=== PATIENT | female | born 1980 | race Caucasian/White ===

== ENCOUNTER → 2017-10-11 14:42 | Outpatient (CLI) | payer OTHER, SELFPAY ==
[2017-10-11 16:24] LABS: Color, Urine Yellow (Yellow); Glucose, Dipstick Normal (Normal); Ketone-Dipstick Negative (Negative); Leukocyte Esterase-Dipstick 100 /ul (Negative); Nitrite-Dipstick Negative (Negative); Occult Blood-Urine 25 /ul (Negative); Protein-Dipstick Negative (Negative); Urine Bilirubin Dipstick Negative (Negative); Urine Clarity Clear (Clear); Urine Urobilinogen Normal (Normal)
[2017-10-11 16:40] LABS: Protein, Urine (Random) 7.3 mg/dL (<11.9); Protein:Creat Ratio 66 mg/g CRE (0-200)
[2017-10-11 17:17] LABS: Erythrocyte Sedimentation Rate 5 mm/hr (0-20)
[2017-10-11 17:21] LABS: Absolute Lymphocyte Count 2.09 X10^3/ul (0.83-4.51); Basophil# 0.03 X10^3/uL; Basophil% 0.4 % (0-1); Eosinophil# 0.19 X10^3/uL; Eosinophils% 2.4 % (0-5); Hematocrit 35.3 % (37-47); Hemoglobin 11.2 g/dl (12.0-15.0); Lymphocyte # 2.09 X10^3/ul (4.0); Lymphocyte % 26.6 % (19-41); Mean Corp Hgb Conc 31.7 g/gl (32-36); Mean Corpuscular Hgb 26.2 pg (27.0-32.0); Mean Corpuscular Volume 82.5 fL (81-99); Mean Platelet Vol. 10.7 fl (6.2-12.0); Monocyte# 0.53 X10^3/uL; Monocyte% 6.7 % (0-10); Neutrophil # 5.02 X10^3/uL (2.7-7.7); Neutrophil % 63.8 % (47-70); Platelet Count 341 K/mm3 (150-450); RBC Distribution Width SD 42.4 fl (35.1-43.9); Red Blood Count 4.28 M/mm3 (4.2-5.4); White Blood Count 7.9 K/mm3 (4.4-11.0)
[2017-10-11 18:02] LABS: AST(SGOT) 17 U/L (15-37); Alanine Aminotransfer ALT/SGPT 24 U/L (13-56); Albumin, Serum 3.7 g/dL (3.2-5.0); Alkaline Phosphatase 84 U/L (45-117); Anion Gap 9 (5-15); BUN 10 mg/dL (7-18); CRP 4.94 mg/L (0.0-3.0); Calcium,Total 8.4 mg/dL (8.5-10.1); Chloride 104 mmol/L (98-107); Creatinine, Serum 0.62 mg/dL (0.55-1.02); EST Glomerular Filtration Rate 113 mL/min (>60); Est Glom Filt Rate - Afr Amer 137 mL/min (>60); Globulin 3.7 g/dL (2.2-4.2); Glucose 84 mg/dL (74-106); Potassium 3.7 mmol/L (3.5-5.1); Protein, Total 7.4 g/dL (6.4-8.2); Rheumatoid Factor < 10.0 IU/mL (<15); Sodium Level 140 mmol/L (136-145)
[2017-10-11 18:12] LABS: POSITIVE COUNT NO; POSITIVE DIFFERENTIAL NO; POSITIVE MORPHOLOGY NO
[2017-10-13 16:53] LABS: Anti-Centromere B Ab >8.0 AI (0.0-0.9); Anti-Jo <0.2 AI (0.0-0.9); Anti-Scleroderma-70 AB <0.2 AI (0.0-0.9); RNP Ab <0.2 AI (0.0-0.9); SJOGREN'S Anti-SS-A test < 0.2 AI (0.0-0.9); SJOGREN'S Anti-SS-B test < 0.2 AI (0.0-0.9); Smith Ab <0.2 AI (0.0-0.9)
[2017-10-14 16:05] LABS: ANTINUCLEAR ANTIBODIES DIRECT Positive (Negative); Anti-dsDNA Ab 3 IU/mL (0-9)
[2017-10-14 16:51] LABS: CCP IgG Antibodies 5 units (0-19); HEPATITIS B SURFACE AG Negative (Negative); Hep B Surface Antibodies Non Reactive (.); Hep C Antibodies <0.1 s/co ratio (0.0-0.9)
== END ==
PROVIDERS: Family Provider Family Medicine; PCP Family Medicine; Visit Provider Internal Medicine Rheumatology
DX: M06.4 Inflammatory polyarthropathy (principal); G24.9 Dystonia, unspecified; R76.8 Other specified abnormal immunological findings in serum; I34.1 Nonrheumatic mitral (valve) prolapse
CPT/HCPCS: 36415; 80053; 81002; 82570; 84156; 85025; 85652; 86038; 86140; 86200; 86225; 86235; 86431; 86706; 86803; 87340

== ENCOUNTER → 2018-05-23 14:25 | Outpatient (CLI) | payer OTHER, SELFPAY ==
[2018-05-27 10:21] LABS: HPV Reflexed? NOT INDICATED
== END ==
PROVIDERS: Visit Provider Obstetrics & Gynecology
DX: Z12.4 Encounter for screening for malignant neoplasm of cervix (principal)
CPT/HCPCS: 88175; G0145

== ENCOUNTER → 2018-10-15 08:59 | Outpatient (CLI) | payer OTHER, SELFPAY ==
[2018-10-15 10:51] LABS: Free T3 2.8 pg/mL (2.18-3.98); T4 Free Direct 0.96 ng/dL (0.76-1.46); Thyroid Stim Hormone (TSH) 1.37 uIU/mL (0.358-3.74)
[2018-10-15 11:02] LABS: Hemoglobin A1c 5.5 % (4.2-6.3)
[2018-10-17 10:37] LABS: Progesterone Level 5.18 ng/mL (See Comment)
[2018-10-17 12:20] LABS: DHEA Sulfate 384.7 ug/dL (57.3-279.2)
== END ==
PROVIDERS: Family Provider Family Medicine; PCP Family Medicine; Referring Provider Obstetrics & Gynecology; Visit Provider Obstetrics & Gynecology
DX: N94.5 Secondary dysmenorrhea (principal); N92.5 Other specified irregular menstruation
CPT/HCPCS: 36415; 82533; 82627; 82670; 83036; 84144; 84403; 84439; 84443; 84481; 82626

== ENCOUNTER 2018-10-27 09:24 | Emergency (ER) | payer OTHER, SELFPAY ==
[2018-10-27 09:30] VITALS: BP 163/94; PULSE 68; RESP 14; TEMP 36.2; O2SAT 97; BMI 27.6
[2018-10-27] MEDS: 0.9% Normal Saline 1,000 ML 1000 ML IV (10:53)
[2018-10-27 11:08] LABS: Absolute Lymphocyte Count 1.68 X10^3/ul (0.83-4.51); Absolute Neutrophil Count 5.1 X10^3/uL (2.0-7.7); Basophil# 0.02 X10^3/uL; Basophil% 0.3 % (0-1); Eosinophil# 0.03 X10^3/uL; Eosinophils% 0.4 % (0-5); Hematocrit 38.2 % (37-47); Hemoglobin 12.6 g/dl (12.0-15.0); Lymphocyte # 1.68 X10^3/ul (4.0); Lymphocyte % 22.6 % (19-41); Mean Corpuscular Hgb 27.9 pg (27.0-32.0); Mean Corpuscular Volume 84.7 fL (81-99); Mean Platelet Vol. 10.3 fl (6.2-12.0); Monocyte# 0.58 X10^3/uL; Monocyte% 7.8 % (0-10); Neutrophil % 68.8 % (47-70); POSITIVE COUNT NO; POSITIVE DIFFERENTIAL NO; POSITIVE MORPHOLOGY NO; Platelet Count 297 K/mm3 (150-450); RBC Distribution Width CV 14.1 % (11.6-14.6); RBC Distribution Width SD 43.9 fl (35.1-43.9); Red Blood Count 4.51 M/mm3 (4.2-5.4); White Blood Count 7.4 K/mm3 (4.4-11.0)
[2018-10-27 11:29] LABS: Anion Gap 10 (5-15); BUN 8 mg/dL (7-18); BUN/Creat Ratio 13.8 RATIO (10-20); Calcium,Total 8.8 mg/dL (8.5-10.1); Chloride 106 mmol/L (98-107); Creatinine, Serum 0.58 mg/dL (0.55-1.02); EST Glomerular Filtration Rate 122 mL/min (>60); Est Glom Filt Rate - Afr Amer 148 mL/min (>60); Estimated Creatinine Clearance 111.34 ml/min; Glucose 104 mg/dL (74-106); Potassium 3.7 mmol/L (3.5-5.1); Sodium Level 142 mmol/L (136-145); Thyroid Stim Hormone (TSH) 1.38 uIU/mL (0.358-3.74)
[2018-10-27 11:36] LABS: Pregnancy, Serum, hCG Quali. NEGATIVE Negative (0-9 Nonpreg)
--- NOTE | 2018-10-27 12:22 | ED.DCSUM_ITS ---
- ER Visit Summary Date of Service: 10/27/18 Chief Complaint: Depression History of Present Illness: The patient is a 38 F who sees Taylor Bañuelos. She reports that she had been on Zoloft for approximately 12 years. Saw primary care physician 6 weeks ago and felt that Zoloft was not working well for her. She was changed from Zoloft to Paxil. There is no taper of the Zoloft. She took the Paxil for 4 days and felt miserable. She was shaky and chattering. She was having nausea and vomiting. The primary care physician stopped the Paxil and placed her on Effexor. She states that she spiraled into depression. She was crying. On September 26 the Effexor was stopped. She was placed on Xanax which she took between September 26 and . States that she was changed to Klonopin on the and she has weaned herself off and has not had any benzodiazepines for the past week. States that she was started on Lexapro 4 days ago. She took 5 mg a day for 2 days. She is now taking 10 mg for the past 3 days. Patient reports she still does not feel well. She has has a poor appetite and has not been sleeping well. However, she denies any suicidal ideation. On review of systems she does complain of a 15 pound weight loss over the same timeframe. She reports she short of breath when she is anxious only. She is been nauseated and having dry heaves. She also complains of generalized weakness. Physical Examination: Vitals: Stable. Afebrile. General: Well-nourished and well-developed. Head: Normocephalic atraumatic. Neck: Supple, no lymphadenopathy. No JVD. Nontender. Cardiovascular: Regular rate and rhythm. No murmurs. Respiratory: No respiratory distress. Clear to auscultation bilaterally. Abdominal: Soft, nontender, nondistended, normal bowel sounds. No guarding, rebound, or peritoneal signs. Back: Nontender. Extremities: Nontender, no edema. Skin: Normal color, no rash. Neurologic: Alert and oriented ?3. Cranial nerves II through XII are intact. Normal strength and sensation. Mental status exam: Patient appears their stated age. Good posture and groo mariangel. Good eye contact. Normal rate, volume, and latency of speech. No suicidal or homicidal ideation. No auditory or visual hallucinations. Flow of thought is logical. Insight and judgment is good. Test Results: CBC is normal. Chem-7 is normal. test is negative. TSH is normal. Emergency Department Course and Treatment: I had a prolonged discussion with patient about alternative methods for treating depression including coping strategies. At this time I do not think taking her off of her Lexapro or changing this is in her best interest. She has had a number of changes in her psychiatric medications in the past month. Treatment Plan: Patient will be discharged with instructions to follow-up the counseling center as previously scheduled. Continue her Lexapro. Return to the emergency department for any worsening symptoms. Disposition: To home in improved and stable condition. Impression: 1. Depression. This note was generated with [employer] dictation software. It may contain incorrect words, spelling, and punctuation that were not noted in review of the chart prior to signing ED Disposition - Plan for ED Patient: Disposition: Home or Assisted Living Instructions: ED Depression Prescriptions: Zolpidem Tartrate [Ambien (Generic)] 5 mg PO QHS PRN PRN #5 tablet PRN Reason: Insomnia Referrals: Counseling,Center [GROUP OF PHYSICIANS] - Keep Horacio appointment
[2018-10-27 12:35] VITALS: BP 135/88; PULSE 62; RESP 17; O2SAT 99
--- NOTE | 2018-10-27 12:35 | ED.RN ---
IV DC'ED, CATHETER INTACT, SMALL GAUZE DRESSING PLACED. DISCHARGE INSTRUCTIONS GIVEN TO AND REVIEWED WITH PATIENT, PATIENT DENIES QUESTIONS OR CONCERNS AND VOICES UNDERSTANDING OF DISCHARGE INSTRUCTIONS. PT AMBULATES OUT OF ROOM WITHOUT DIFFICULTY.
== END 2018-10-27 12:37 | disposition home or self-care (01) ==
LOC: ED 10:22
PROVIDERS: Emergency Provider Emergency Medicine; Family Provider Family Medicine; PCP Family Medicine
DX: F32.9 Major depressive disorder, single episode, unspecified (principal); R11.2 Nausea with vomiting, unspecified; R06.00 Dyspnea, unspecified; R63.4 Abnormal weight loss; G47.33 Obstructive sleep apnea (adult) (pediatric); K21.9 Gastro-esophageal reflux disease without esophagitis; Z79.899 Other long term (current) drug therapy
CPT/HCPCS: 80048; 84443; 84703; 85025; 96360; 96361; 99283; J7030; A4216

== ENCOUNTER → 2019-01-19 14:45 | Outpatient (CLI) | payer OTHER, SELFPAY ==
[2019-01-19 17:18] LABS: Hemoglobin 12.2 g/dl (12.0-15.0); Mean Corpuscular Hgb 27.2 pg (27.0-32.0); Mean Corpuscular Volume 82.6 fL (81-99); Mean Platelet Vol. 11.4 fl (6.2-12.0); Platelet Count 270 K/mm3 (150-450); RBC Distribution Width CV 14.9 % (11.6-14.6); RBC Distribution Width SD 44.5 fl (35.1-43.9); Red Blood Count 4.48 M/mm3 (4.2-5.4); White Blood Count 7.6 K/mm3 (4.4-11.0)
[2019-01-19 17:19] LABS: Scan Indicated on CBC? Y/N NO
[2019-01-19 17:30] LABS: Hemoglobin A1c 5.6 % (4.2-6.3)
[2019-01-19 17:32] LABS: Estradiol 30.8 pg/mL; Free T3 2.7 pg/mL (2.18-3.98); Progesterone Level 0.57 ng/mL (See Comment); T4 Free Direct 0.86 ng/dL (0.76-1.46)
== END ==
PROVIDERS: Family Provider Family Medicine; PCP Family Medicine; Visit Provider Obstetrics & Gynecology
DX: D21.9 Benign neoplasm of connective and other soft tissue, unspecified (principal)
CPT/HCPCS: 36415; 82670; 83036; 84144; 84403; 84439; 84443; 84481; 85027

== ENCOUNTER 2019-01-26 08:36 | Day surgery (SDC) | payer OTHER, SELFPAY ==
--- NOTE | 2019-01-25 15:53 | PCM.HP.BLA ---
History and Physical Date of Admission: 01/26/19 Farideh Daley 1980 ? ? REFERRING PHYSICIAN: Josselin Payne ([facility]), * ? CHIEF COMPLAINT: appendix ? HPI: The patient is a 38 year old female presents with abnormal appendix seen on CT scan. She denies any abdominal pain. CT scan obtained at [facility] on 12/26/18 for right flank pain. 7 cm uterine mass with 1-2 cm exophytic lesion on th elft. Appendix is diffusely dilated up to 16 mm with mild adjacent inflammatory change and some proximal wall thickening. Benign right adrenal myelolipoma. She also had MRI scan of brain for complaint of nausea and dizziness for several weeks. US 12/29/18 - right hydronephrosis noted CT scan reading from [facility] of above scans. GI Tract: No bowel dilation. Chronic appendiceal dilation up to 1.5 cm in diameter (series 2 image 60). The appendix measured 1 cm in diameter on contrast-enhanced CT from 03/04/2017, when there was soft tissue thickening in the mid portion of the appendiceal lumen. 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 Subtle stranding around the pancreas is unchanged. Colonic diverticulosis. No lymphadenopathy noted. 10 cm fibroid, 2.3 cm adenexal cyst, 3.3 cm round soft tissue lesion in right adnexa ? ? PAST MEDICAL HISTORY ? Deviated septum ? ? GERD (gastroesophageal reflux disease) ? ? History of seizure disorder ? ? Resolved ? Lung nodule < 6cm on CT 05/16/2018 ? MVP (mitral valve prolapse) ? ? SHUN (obstructive sleep apnea) ? ? SOB (shortness of breath) 05/16/2018 ? PAST SURGICAL HISTORY ? BREAST REDUCTION ? ? ? DELIVERY ONLY ? ? ? ECISION OF LINGUAL TONSIL ? ? ? OVARY SURGERY HX ? ? ? PAST SURGICAL HISTORY OF ? 2009 ? removal of kidney stone ? ? Current Outpatient Medications: sertraline (ZOLOFT) 50 mg tablet Take 50 mg by mouth once daily. verapamil (CALAN) 120 mg tablet Take 60 mg by mouth once daily. Magnesium 200 mg tab Take by mouth. ? ? ALLERGIES: Amoxicillin; Ciprofloxacin; Morphine; Paxil [Paroxetine Hcl]; Propranolol; Sulfa (Sulfonamide Antibiotics); Venlafaxine ? PERSONAL HISTORY: Social History Socioeconomic History Marital status: Spouse name: Not on file Number of children: Not on file Years of education: Not on file Highest education level: Not on file Social Needs Financial resource strain: Not on file Food insecurity - worry: Not on file Food insecurity - inability: Not on file Transportation needs - medical: Not on file Transportation needs - non-medical: Not on file Occupational History Comment: [employer] Tobacco Use Smoking status: Never Smoker Smokeless tobacco: Never Used Tobacco comment: Both parents smoked in childhood home until patient in teens. No smoking in current home. Substance and Sexual Activity Alcohol use: No Drug use: No Sexual activity: Not on file Other Topics Concerns: Not on file Social History Narrative Not on file ? FAMILY HISTORY ? Asthma Mother ? ? Uterine Cancer Mother ? ? Hypertension Mother ? ? Stroke Mother ? ? other (Hypothyroid) Mother ? ? Allergies Father ? ? Cancer Father ? ? Lung cancer, resected 2 years; Keytruda. No recurrence. ? Hypertension Father ? ? Diabetes Father ? ? Asthma Son ? ? Developed age 12. ? Hypertension Brother ? ? other (Hyperthyroid) Brother ? ? Blood Disease Maternal Grandmother ? ? Heart disease Maternal Grandmother ? ? Psychiatry Maternal Grandmother ? ? Diabetes Paternal Grandfather ? ? ? REVIEW OF SYSTEMS: General: The patient notes fatigue, denies weight loss, denies weight gain, denies feeling hot, and denies feelings of cold. Eyes: The patient denies glaucoma, denies eye injury/surgery, does not wear glasses or contacts. Ear/Nose/Throat: The patient denies allergies, denies hayfever, notes ear infections, and denies bloody noses. Cardiovascular: The patient notes chest pain, denies heart disease, denies high blood pressure,denies cardiac stent, denies prior heart attack, denies irregular heart beat, denies high cholesterol, denies poor circulation, denies heart failure, other cardiac issues, denies claudication, denies cold feet, denies peripheral arterial stent. Respiratory: The patient denies tuberculosis, denies pneumonia, denies frequent cough, denies pulmonary embolism, notes shortness of breath, and denies coughing up blood. Gastrointestinal: The patient denies difficulty swallowing, notes acid reflux, denies ulcers, denies vomiting, denies jaundice/hepatitis, denies gallbladder problems, denies black or tarry stools, denies hemorrhoids, denies bleeding from rectum, denies diverticulitis, denies constipation, denies diarrhea, denies loss of stool control, and notes hernias. Kidney/Bladder: The patient notes kidney stones, denies urine infections, and denies bloody urine. Skin: The patient denies a history of skin cancer, denies bleeding/changing moles, and denies a history of skin rash. Neurologic: The patient NOTES a history of epilepsy/convulsions, notes headaches, denies head/spinal injuries, and denies stroke/TIA. Psychiatric: The patient notes psychiatric medications, denies depression, and denies voices, denies substance abuse. Endocrine: The patient denies thyroid disorders, denies diabetes, and notes hormonal problems. Hematologic: The patient denies a history of bruising, denies bleeding, and notes anemia, denies blood clots. Infections: The patient denies a history of measles and mumps, denies rheumatic fever, and denies sexually transmitted diseases. Musculoskeletal: The patient denies back pain/injury, denies back problems, denies sciatica, denies knee/foot trouble, notes arthritis, or denies gout. ? PHYSICAL EXAMINATION: General: The patient is 38 year old female, well nourished, well hydrated in no acute distress. The patient is oriented to time, place, and person. VITALS: Blood pressure 124/72, pulse 60, weight 72.1 kg (159 lb). Head ? Normocephalic. EOM intact with sclera clear and no icterus noted. Mouth with mucus membranes moist. Neck - supple with no jugular venous distention noted. Trachea is midline. No masses noted. Lungs ? clear to auscultation. Normal breath sounds. No rales/rhonchi/wheezing noted. No labored breathing noted, such as retractions. Heart ? normal S1 and S2 auscultated. No rubs/clicks/murmurs noted. Regular rate. Abdomen ? soft and benign. Normal bowel sounds. No abdominal bruits noted. No distention oted. No masses noted. Extremities ? no calf tenderness noted. No pitting edema noted. Skin ? normal skin integrity. Lymph ? no cervical adenopathy detected, no supraclavicular adenopathy detected, no axillary adenopathy detected Neurological ? gait normal, no focal deficits noted. Psych ? calm and appropriate RADIOLOGIC STUDIES: As Noted ? ? IMPRESSION: abnormal appendix on CT scan ? PLAN: I have discussed the above with the patient. I have offered laparoscopic appendectomy, with frozen section. I have explained the procedure to the patient. I have counseled the patient as to the risks of the procedure, including but not limited to: infection, bleeding, injury to any blood vessels/nerves, scar tissue, injury to any intraabdominal organs, injury to bowel/bladder, intraabdominal abscess/bleeding, hernias at incisional sites, wound infections, complications of anesthesia, etc. ? the patient understands. The patient wishes to proceed. I have answered all questions to the patient?s satisfaction and the patient has no further questions. Return to Clinic: The patient is instructed to follow-up with me ? Marlyn Wilder MD
--- NOTE | 2019-01-25 16:04 | EKG12_ITS ---
Test Reason : PRE OP Blood Pressure : / mmHG Vent. Rate : 069 BPM Atrial Rate : 069 BPM P-R Int : 136 ms QRS Dur : 094 ms QT Int : 412 ms P-R-T Axes : 065 006 051 degrees QTc Int : 441 ms Normal sinus rhythm Low voltage QRS (limb leads) Poor R wave progression Inferior FL, age undetermined, cannot be excluded Confirmed by DERRICK ARCHIBALD, MARYAM ([id number]), primer expeditor and drier ARAM CASIANO ([id number]) on 01/27/2019 6:44:46 AM Referred By: Marlyn Wilder Confirmed By:MARYAM MEZA MD
[2019-01-25 17:52] LABS: Hematocrit 36.8 % (37-47); Hemoglobin 12.1 g/dl (12.0-15.0); Mean Corp Hgb Conc 32.9 g/gl (32-36); Mean Corpuscular Hgb 27.1 pg (27.0-32.0); Mean Corpuscular Volume 82.3 fL (81-99); Mean Platelet Vol. 11.1 fl (6.2-12.0); Platelet Count 266 K/mm3 (150-450); RBC Distribution Width CV 14.9 % (11.6-14.6); RBC Distribution Width SD 44.2 fl (35.1-43.9); Red Blood Count 4.47 M/mm3 (4.2-5.4); White Blood Count 8.7 K/mm3 (4.4-11.0)
[2019-01-25 17:58] LABS: Scan Indicated on CBC? Y/N NO
[2019-01-26] VITALS (7 sets, daily range): BP systolic 110–142; BP diastolic 62–88; PULSE 70–85; RESP 16–18; TEMP 36.2–37.7; O2SAT 95–100; BMI 27.3
[2019-01-26 08:55] LABS: Internal QC Validated? YES +Cl - CLEAR BKGD; Pregnancy, Urine Negative Negative
--- NOTE | 2019-01-26 10:53 | PCM.DC.APPY ---
Discharge Diet: No Restrictions - drink plenty of fluids avoid carbonated beverages for a couple of days as this may cause bloat and increase discomfort after surgery Discharge Activity: Return to Normal Activity, May not drive while taking narcotic pain medications. Lifting Restrictions: no lifting greater than 20 pounds for two weeks Call your doctor if your incision/area has: Continuous Slow Oozing, Foul Smelling Discharge Call your doctor if you observe: Fever of 101 or Higher Additional Dressing/Incision Instructions:: Leave dressings in place. May get wet in shower. Do not soak - no tub baths/swimming Medications to take at Discharge Verapamil HCl [Verapamil ER] 60 mg PO DAILY 10/27/18 Famotidine/Ca Carb/Mag Hydrox [Pepcid Complete Tablet Chew] 1 each PO PRN PRN 01/24/19 Sertraline HCl [Zoloft] 50 mg PO DAILY 01/24/19 Hydrocodone Bitart/Apap 5-325 [Vicodin 5/325] 1 tab PO Q12H PRN PRN 3 Days #5 tab 01/26/19 Allergies/Adverse Reactions: Allergies propranolol [From Inderal LA] Allergy (Verified 01/24/19 13:44) Shortness of breath Sulfa (Sulfonamide Antibiotics) Allergy (Verified 01/24/19 13:44) Unknown amoxicillin Adverse Reaction (Verified 01/24/19 13:44) Rash codeine Adverse Reaction (Verified 01/24/19 13:44) Other Penicillins [PCN] Adverse Reaction (Verified 01/24/19 13:44) Rash MORPHINE Adverse Reaction (Uncoded 10/27/18 09:29) Itching The following prescriptions were given: Hydrocodone Bitart/Apap 5-325 [Vicodin 5/325] 1 tab PO Q12H PRN PRN 3 Days #5 tab PRN Reason: Pain Orders to be completed after discharge: 12 Lead EKG [[facility]] Time Frame: 01/25/19, Facility: [facility], Location: Cardiovascular Services Primary Care Physician: Josselin Payne NP-C [Primary Care Provider] - Test Results: Test results from this visit will be discussed in further detail at your follow-up appointment, if applicable. Please Follow Up With: Marlyn Wilder MD - call When: to be seen in 7-10 days, please call for date and time, thank you
--- NOTE | 2019-01-26 11:05 | APP_PTH ---
PATIENT: JAVIER DOSS LOC: [facility] U#:[id number] AGE/SX: 38/F ROOM: RE01/26/[address]: Dr. Marlyn Wilder MD : 1980 BED: DIS: 01/26/2019 SPEC #: [id number] RECD: 01/26/19 15:16 STATUS: CHERIE МАРИНА #: [id number] MARIJA: 01/26/19 11:[address]: Marlyn Wilder DEPT: SURGICAL PATHOLOGY RECD BY: Yobany Krueger ENTERED: 01/27/19 08:50 SP TYPE: APPENDIX OTHR DR: Josselin Payne, DOCUMENT MANAGEMENT SPECIALIST-C Tissues: Appendix, NOS Procedures: Surgery Specimen Level III HEADER OPERATION: Laparoscopic appendectomy PRE-OP DIAGNOSIS: Abnormal appendix on CT scan TISSUE SUBMITTED: Appendix MICROSCOPIC DIAGNOSIS Appendix, appendectomy: Hyperplastic epithelium. Two benign periappendiceal lymph nodes. AM:júnior 01/30/19 COMMENT Case has been reviewed in consultation with Dr. Garay who concurs with the above diagnosis. IDC:SJ MICROSCOPIC DESCRIPTION Slides are reviewed. GROSS DESCRIPTION Received is one container labeled with the patient's name and designated appendix. The specimen consists of an appendix which is interrupted in the middle measuring 6 cm in length and up to 1.5 cm in diameter. The attached periappendiceal adipose tissue measures up to 1.5 cm in width. No obvious perforation is identified. The lumen is pinpoint. No fecalith is identified. Sections of periappendiceal tissue do not reveal any obviously enlarged lymph node. Gas Meter Installer Helper sections are submitted in four cassette. Cassette 1 contains the tip of appendix and proximal portion. / ELENITA:júnior 01/27/19 TC:5 CPT: 77947
[2019-01-26] MEDS: Bupiv/Epi 0.25% 30 ML Vial (11:44)
--- NOTE | 2019-01-26 11:51 | OP.PCM_ITS ---
Report of Operation Date of Procedure: 01/26/19 Pre-Operative Diagnosis: abnormal appendix by CT scan Post-Operative Diagnosis: same Surgery/Procedure Performed:: laparoscopic appendectomy Description of Surgical Findings:: enlarged uterus, possible endometriosis deposit, blood in pelvis of unknown etiology - no from appendix - suspect gynecological etiology, enlarged appendix - possible adenopathy adjacent Type of Anesthesia:: General Anesthesiologist: Tin Wen Specimen's removed: appendix Drains: none Estimated Blood Loss (mL): < 10 Fluids Replaced: 1200 ml RL Description of Procedure: After informed consent was obtained, the patient was brought into the Operating Room. Appropriate time out protocol was followed. She was then placed in the supine position on the operating table. The patient was then placed under general anesthesia. The patient?s abdomen was then prepped with a sterile surgical skin preparation and sterile surgical drapes were placed. The infraumbilical skin fold was grasped with penetrating clamps and the skin and subcutaneous tissues were infiltrated with 0.25% marcaine with epinephrine. A skin incision was then made. A Veress needle was then inserted into the intraabdominal cavity and checked to be in the proper position with a normal saline drop test. A CO2 pneumoperitoneum was then created. Once this was achieved, the Veress needle was removed and a 5 mm trocar was placed in its stead. A 5 mm laparoscope was then inserted into the trocar. Careful examination of the intraabdominal contents was then done. There was no evidence of injury to any internal organs from placement of the Veress needle or the trocar. Under direct visualization, a 12mm suprapubic trocar and a 5mm left lower quadrant trocar was then placed into the intraabdominal cavity. The skin and subcutaneous tissues at these sites were first infiltrated with 0.25% marcaine with epinephrine. The uterus was enlarged, pictures were taken. Possible endometriosis deposits noted. There was blood noted in the pelvis, but no site of active bleeding could be determined. The uterus was greatly enlarged such that visualization of pelvic structures could not be adequately done. Attention was then directed to the right lower quadrant. The appendix was visualized. It was grossly dilated, but no active bleeding was noted in this area. The mesentery of the appendix was taken down by cauterizing the tissue from the free edge to the base of the appendix with the Harmonic scalpel. There may be a lymph node within this tissue and it was dissected along with the specimen en berhane. Once the base of the appendix was freed of surrounding tis sues, then the linear gastrointestinal stapling device was brought into the abdominal cavity via the 12mm port and placed across the base of the appendix. The stapling device was fired, thus stapling across the base of the appendix and transecting it simultaneously. The appendix was then placed in an Endobag and this was brought out through the suprapubic trocar. The appendix was then forwarded to Pathology for analysis. The appendiceal stump was carefully examined. There was slight oozing along the staple line, this was controlled with placement of Surgicel. There was no evidence of any active bleeding or fecal leakage. The surrounding tissues were also examined and there was no evidence of any active bleeding or fecal/bile leakage. The intraabdominal cavity was examined and there was no evidence of further inflammation or tissue abnormality except as stated above. There was no evidence of any peritoneal fluid. The CO2 pneumoperitoneum was released and all trocars were removed intact. The suprapubic fascia was reapproximated with a figure-of-8 vicryl suture. All skin incisions were reapproximated with monocryl suture. Cavilon and steristrips were applied to reinforce skin closure and proper sterile dressings were placed. The patient was then extubated and brought to the Recovery Room in stable condition. - Complications none noted - Admit VTE Documentation VTE Present on Admission: Yes VTE Mechan Device Prophylaxis: SCD's
[2019-01-26] MEDS: HYDROcodone Bitartrate/Apap 5/325 Tablet PO (14:50)
== END 2019-01-26 15:50 | disposition home or self-care (01) ==
LOC: SDC 08:37 → AC 08:38
PROVIDERS: Anesthesiology; Family Provider Registered Nurse; PCP Registered Nurse; Referring Provider Surgery; Visit Provider Surgery
PROC: 0DTJ4ZZ Resection of Appendix, Percutaneous Endoscopic Approach (ICD-10-PCS; CPT 44970; principal; 2019-01-26 10:45)
DX: R93.5 Abnormal findings on diagnostic imaging of other abdominal regions, including retroperitoneum (principal); N85.2 Hypertrophy of uterus; G47.30 Sleep apnea, unspecified; K21.9 Gastro-esophageal reflux disease without esophagitis; F32.9 Major depressive disorder, single episode, unspecified; F41.9 Anxiety disorder, unspecified; G47.33 Obstructive sleep apnea (adult) (pediatric); Z88.2 Allergy status to sulfonamides; Z88.0 Allergy status to penicillin; Z88.5 Allergy status to narcotic agent; Z88.1 Allergy status to other antibiotic agents; Z79.899 Other long term (current) drug therapy; Z87.442 Personal history of urinary calculi; Z86.69 Personal history of other diseases of the nervous system and sense organs
CPT/HCPCS: 44970; 36415; 81025; 85027; 88304; 93005; J7120; J2405

== ENCOUNTER 2019-01-31 18:19 | Emergency (ER) | payer OTHER, SELFPAY ==
[2019-01-26 09:13] VITALS: BMI 27.3
[2019-01-31 18:21] VITALS: BP 133/86; PULSE 86; RESP 18; TEMP 36.9; O2SAT 99; BMI 26.8
--- NOTE | 2019-01-31 19:48 | CT_ITS ---
STUDY: CT ABDOMEN AND PELVIS WITH CONTRAST REASON FOR EXAM: Female, 38 years old. Status post appendectomy 5 days ago. Post op pain. RADIATION DOSAGE (If Supplied By Facility): CTDIvol = ( 17.33 ) mGy, DLP = ( 966.11 ) mGycm TECHNIQUE: Transaxial images were obtained from the dome of the diaphragm to the symphysis pubis without oral contrast. 100ML ml of Isovue 300 contrast was administered. Sagittal and coronal images were reconstructed. Individualized dose optimization techniques were used for this CT. COMPARISON: None. FINDINGS: The visualized lung bases are clear. The visualized portions of the heart and pericardium are within normal limits. There are no calcified gallstones present. The liver is within normal limits. There are no suspicious hepatic lesions. The spleen is normal in size. The pancreas is within normal limits. There is a 3.2 cm fat containing right adrenal mass which is consistent with a myolipoma. There are no left adrenal nodules. There are no renal or ureteral stones. There is no hydronephrosis. There is a 2.8 cm septated cyst in the upper pole of the right kidney. There is a simple cyst in the left kidney. Normal visualized stomach. There is no bowel obstruction or inflammation. The patient is status post appendectomy. There is mild fat stranding in the right lower quadrant, consistent with the patient's recent postoperative state. The aorta is normal in caliber. The uterus is enlarged and heterogeneous, consistent with fibroids. There is a 3 cm right adnexal cyst. There is no abdominal or pelvic free air, free fluid, fluid collection or lymphadenopathy. There are no destructive osseous lesions. CT/Abdomen/Pelvis WITH Contrast IMPRESSION: Status post appendectomy. Mild fat stranding in the right lower quadrant, consistent with the patient's recent postoperative state. No free air, free fluid or fluid collection. Fat-containing right adrenal mass which is consistent with a myelolipoma. Septated cyst in the right kidney. Enlarged, heterogeneous uterus which is consistent with fibroids. 3 cm right adnexal cyst which is likely physiologic. Electronically Signed: Ashvin Villafana, at 21:56 EDT Tel , Service support ,
--- NOTE | 2019-01-31 19:54 | ED.DCSUM_ITS ---
- ER Visit Summary Date of Service: 01/31/19 Chief Complaint: Abdominal pain History of Present Illness: The patient is a 38 F presenting with right lower quadrant abdominal pain. Patient had an appendectomy last per Dr. Wilder. She states today she began having intermittent right sided lower abdom inal pain. She has nausea with no vomiting. She denies diarrhea or constipation. Denies fever. Denies urinary complaints. She has a follow-up appointment scheduled with Dr. Wilder tomorrow. Physical Examination: Vitals are stable. Patient is afebrile. Alert no acute distress. HEENT exam is unremarkable. Neck is supple. Lungs are clear and equal bilaterally. Heart is regular rate and rhythm. Abdomen is soft nontender nondistended. Dressings clean dry and intact Extremities are unremarkable. Skin is warm and dry. No focal neurologic deficit. Remainder of exam is unremarkable. Emergency Department Course and Treatment: Patient was given Zofran IV. CBC, chemistries unremarkable. Urinalysis unremarkable. hCG negative. CT abdomen pelvis shows status post appendectomy. Mild fat stranding in the right lower quadrant, consistent with the patient's recent postoperative state. No free air, free fluid or fluid collection. Fat-containing right adrenal mass which is consistent with a myelolipoma. Septated cyst in the right kidney. Enlarged, heterogeneous uterus which is consistent with fibroids. 3 cm right adnexal cyst which is likely physiologic. Discussed with Dr. Musa. Patient will follow- up with Dr. Wilder as scheduled. Advised return to ED for worsening complaints. Disposition: Discharge home Impression: Postoperative abdominal pain This note was generated with [employer] dictation software. It may contain incorrect words, spelling, and punctuation that were not noted in review of the chart prior to signing ED Disposition - Plan for ED Patient: Instructions: ED Abdominal Pain Unkn Cause Referrals: Marlyn Wilder MD [STAFF PHYSICIAN] - Josselin Payne NP-C [Primary Care Provider] -
[2019-01-31] MEDS: Ondansetron 4 MG/2 ML Vial IV (20:04)
[2019-01-31 20:22] LABS: Absolute Lymphocyte Count 1.92 X10^3/ul (0.83-4.51); Absolute Neutrophil Count 5.9 X10^3/uL (2.0-7.7); Basophil# 0.02 X10^3/uL; Basophil% 0.2 % (0-1); Eosinophil# 0.14 X10^3/uL; Eosinophils% 1.6 % (0-5); Hematocrit 38.6 % (37-47); Hemoglobin 12.8 g/dl (12.0-15.0); Lymphocyte # 1.92 X10^3/ul (4.0); Lymphocyte % 22.2 % (19-41); Mean Corp Hgb Conc 33.2 g/gl (32-36); Mean Corpuscular Hgb 27.4 pg (27.0-32.0); Mean Corpuscular Volume 82.7 fL (81-99); Monocyte# 0.68 X10^3/uL; Monocyte% 7.9 % (0-10); Neutrophil # 5.85 X10^3/uL (2.7-7.7); Neutrophil % 67.9 % (47-70); Platelet Count 302 K/mm3 (150-450); RBC Distribution Width CV 14.9 % (11.6-14.6); RBC Distribution Width SD 44.8 fl (35.1-43.9); Red Blood Count 4.67 M/mm3 (4.2-5.4); White Blood Count 8.6 K/mm3 (4.4-11.0)
[2019-01-31 20:23] LABS: POSITIVE COUNT NO; POSITIVE DIFFERENTIAL NO; POSITIVE MORPHOLOGY NO
[2019-01-31 20:29] LABS: Internal QC Validated? YES +Cl - CLEAR BKGD; Pregnancy, Serum, hCG Quali. NEGATIVE Negative
[2019-01-31 20:35] LABS: Anion Gap 3 (5-15); BUN 11 mg/dL (7-18); BUN/Creat Ratio 17.8 RATIO (10-20); Calcium,Total 8.8 mg/dL (8.5-10.1); Chloride 106 mmol/L (98-107); Creatinine, Serum 0.62 mg/dL (0.55-1.02); EST Glomerular Filtration Rate 114 mL/min (>60); Est Glom Filt Rate - Afr Amer 138 mL/min (>60); Estimated Creatinine Clearance 104.16 ml/min; Glucose 95 mg/dL (74-106); Potassium 3.7 mmol/L (3.5-5.1); Sodium Level 139 mmol/L (136-145)
[2019-01-31 20:41] LABS: Mucous, Urine 0 SEEN /hpf (<or=2+); Red Blood Cells-Urine 0 SEEN /hpf (0-5)
[2019-01-31 20:53] LABS: Color, Urine Yellow (Yellow); Glucose, Dipstick Normal (Normal); Ketone-Dipstick Negative (Negative); Leukocyte Esterase-Dipstick 25 /ul (Negative); Nitrite-Dipstick Negative (Negative); Occult Blood-Urine Negative /ul (Negative); Protein-Dipstick Negative (Negative); Specific Gravity, Urine 1.015 (1.002-1.030); Urine Bilirubin Dipstick Negative (Negative); Urine Clarity Sl. Cloudy (Clear); Urine Urobilinogen Normal (Normal)
[2019-01-31 21:13] LABS: Bacteria 1+ /hpf (None Seen); Squamous Epithelial Cells - UA 0-5 SEEN /hpf (5-10); White Blood Cells 0-5 SEEN /hpf (0-5)
[2019-01-31 21:14] LABS: Amorphous Sediment 2+
--- NOTE | 2019-01-31 22:44 | EKG12_ITS ---
Test Reason : CP Blood Pressure : / mmHG Vent. Rate : 070 BPM Atrial Rate : 070 BPM P-R Int : 138 ms QRS Dur : 098 ms QT Int : 406 ms P-R-T Axes : 055 -07 041 degrees QTc Int : 438 ms Normal sinus rhythm Normal ECG Confirmed by ANAY MCBRIDE ([id number]), purchase request editor MADDISON DILLARD ([id number]) on 02/02/2019 11:52:06 AM Referred By: Confirmed By:ZAC MCBRIDE
--- NOTE | 2019-01-31 23:02 | ED.DEP ---
ED Disposition - Plan for ED Patient: Instructions: ED Abdominal Pain Unkn Cause Referrals: Josselin Payne NP-Baldev [Primary Care Provider] - Marlyn Wilder MD [STAFF PHYSICIAN] -
[2019-01-31 23:41] VITALS: BP 127/91; PULSE 72; RESP 16; O2SAT 95
== END 2019-01-31 23:46 | disposition home or self-care (01) ==
PROVIDERS: Emergency Provider Emergency Medicine; Family Provider Registered Nurse; PCP Registered Nurse
DX: G89.18 Other acute postprocedural pain (principal); Z90.49 Acquired absence of other specified parts of digestive tract; R11.0 Nausea; E27.9 Disorder of adrenal gland, unspecified; N28.1 Cyst of kidney, acquired; F41.9 Anxiety disorder, unspecified; Z79.899 Other long term (current) drug therapy
CPT/HCPCS: 74177; 80048; 81001; 84703; 85025; 93005; 96374; 99283; Q9967; A4216; J2405

== ENCOUNTER 2019-03-05 12:00 | Emergency (ER) | payer OTHER, SELFPAY ==
[2019-03-05 12:01] VITALS: BP 128/81; PULSE 82; RESP 18; TEMP 36.6; O2SAT 100; BMI 27.4
--- NOTE | 2019-03-05 12:26 | ED.DCSUM_ITS ---
- ER Visit Summary Date of Service: 03/05/19 Chief Complaint: Neck pain History of Present Illness: The patient is a 38 F pathology. On recent 4 weeks ago for elective appendectomy. Prior to having the surgery she had massage therapy of her neck. Since that time about 4 weeks ago she has had chronic midl ine neck pain. Denies any fall or trauma. No fever. No arm weakness or numbness. No burning pain. No loss of strength. No prior neck history of neck surgery. She has seen a chiropractor with [facility]. She gets the pain she often gets nauseated. Physical Examination: Well-appearing middle-aged female. No acute distress. Vital signs are stable afebrile. HEENT exam unremarkable neck nontender no lymphadenopathy. She has full flexion-extension and rotation of her neck. There is no muscle spasm. There is no midline abnormality or tenderness. Lungs clear to auscultation bilaterally. Heart regular rhythm no murmur. Abdomen soft nontender. Extremities moves all 4. Neurovascular intact. Normal molder foam rubber strength. Normal sensation. Normal range of motion. Back nontender. Neurologically she is awake alert with no focal motor or sensory deficit. Test Results: None Emergency Department Course and Treatment: Zofran for nausea. Treatment Plan: Had a long discussion the patient and her significant other. She needs no imaging at this time. There is been no significant trauma. She has no signs of acute disc. There is no signs of significant muscle spasm. She can use Motrin or Aleve for pain and inflammation. Zofran for nausea and follow-up with her primary if her symptoms do not improve. Disposition: Discharge Impression: Acute neck pain muscular skeletal etiology This note was generated with [employer] dictation software. It may contain incorrect words, spelling, and punctuation that were not noted in review of the chart prior to signing ED Disposition - Plan for ED Patient: Referrals: Josselin Payne NP-C [Primary Care Provider] -
--- NOTE | 2019-03-05 12:31 | ED.DEP ---
ED Disposition - Plan for ED Patient: Disposition: Home or Assisted Living Instructions: NECK PAIN, No Trauma Prescriptions: Ondansetron [Zofran Odt] 4 mg PO Q8H PRN PRN #20 tab PRN Reason: Nausea Prescription Printed Referrals: Josselin Payne, [employer] [Primary Care Provider] - 1 Week if not improving Additional Instructions: Motrin, Aleve or Naprosyn for your neck pain and inflammation. Tylenol is fine for pain but does not think for inflammation. Next rib Zofran for your nausea. Follow-up with your doctor or primary care provider if not improving in 1 to 2 weeks.
[2019-03-05] MEDS: Ondansetron ODT 4 MG Tablet 8 MG PO (12:32)
[2019-03-05 13:10] VITALS: RESP 18; O2SAT 98
== END 2019-03-05 13:13 | disposition home or self-care (01) ==
LOC: ED 13:05
PROVIDERS: Emergency Provider Emergency Medicine; Family Provider Registered Nurse; PCP Registered Nurse
DX: M54.2 Cervicalgia (principal); G89.29 Other chronic pain; R11.0 Nausea; K21.9 Gastro-esophageal reflux disease without esophagitis; F32.9 Major depressive disorder, single episode, unspecified; Z79.899 Other long term (current) drug therapy
CPT/HCPCS: 99282

== ENCOUNTER → 2020-07-20 | Outpatient (CLI) | payer OTHER, SELFPAY ==
[2020-07-20 13:52] VITALS: BMI 27.8
== END | disposition home or self-care (01) ==
PROVIDERS: PCP Registered Nurse; Visit Provider Nurse Practitioner Family
DX: U07.1 COVID-19 (principal)
CPT/HCPCS: 87635; U0003

== ENCOUNTER 2021-05-08 21:55 | Observation (INO) | payer OTHER, SELFPAY ==
[2021-05-08 21:56] VITALS: BP 124/89; PULSE 86; RESP 15; TEMP 36.9; O2SAT 98; BMI 29.7
[2021-05-08 22:26] VITALS: RESP 18
[2021-05-08 23:20] LABS: Anion Gap 4 (5-15); BUN 9 mg/dL (7-18); BUN/Creat Ratio 14.2 RATIO (10-20); Calcium,Total 8.8 mg/dL (8.5-10.1); Chloride 104 mmol/L (98-107); Creatinine, Serum 0.63 mg/dL (0.55-1.02); EST Glomerular Filtration Rate 109 mL/min (>60); Est Glom Filt Rate - Afr Amer 132 mL/min (>60); Estimated Creatinine Clearance 100.45 ml/min; Glucose 120 mg/dL (74-106); Potassium 3.7 mmol/L (3.5-5.1); Sodium Level 138 mmol/L (136-145)
[2021-05-08 23:25] LABS: Internal QC Validated? YES +Cl - CLEAR BKGD; Pregnancy, Serum, hCG Quali. NEGATIVE Negative
[2021-05-08 23:26] LABS: Absolute Lymphocyte Count 1.09 X10^3/uL (0.83-4.51); Absolute Neutrophil Count 11.2 X10^3/uL (2.0-7.7); Basophil# 0.03 X10^3/uL; Basophil% 0.2 % (0-1); Eosinophil# 0.06 X10^3/uL; Eosinophils% 0.4 % (0-5); Hematocrit 39.1 % (37-47); Lymphocyte # 1.09 X10^3/ul (0.83-4.51); Lymphocyte % 8.2 % (19-41); Mean Corp Hgb Conc 33.2 g/dL (32-36); Mean Corpuscular Hgb 27.9 pg (27.0-32.0); Mean Corpuscular Volume 83.9 fL (81-99); Mean Platelet Vol. 10.3 fl (6.2-12.0); Monocyte# 0.72 X10^3/uL; Monocyte% 5.4 % (0-10); NRBC Flagged by Analyzer 0 % (0-5); Neutrophil # 11.24 X10^3/uL (2.7-7.7); Neutrophil % 84.1 % (47-70); Platelet Count 301 K/mm3 (150-450); RBC Distribution Width CV 13.2 % (11.6-14.6); RBC Distribution Width SD 40.4 fl (35.1-43.9); Red Blood Count 4.66 M/mm3 (4.2-5.4); White Blood Count 13.4 K/mm3 (4.4-11.0)
--- NOTE | 2021-05-08 23:52 | ED.VIS.GI ---
HPI HPI - GI History of Present Illness Chief Complaint: Abd Pain Narrative Narrative: Patient presenting with abdominal pain. She points to the center of her lower abdomen. She states is been hurting since yesterday. She associates nausea and vomiting with this. She has not had a fever. Patient states she had a surgery recently for adrenal gland removal. She has a history of hysterectomy as well. Patient does not have diarrhea or constipation. He feels pressure in her lower abdomen. She denies urinary complaints. PFSH PFSH Medical History Mitral valve prolapse Home Medications verapamil 60 mg PO DAILY 10/27/18 [History Last Taken 01/30/19] sertraline 50 mg PO DAILY 01/24/19 [History Last Taken 01/30/19] esomeprazole magnesium [Nexium] 40 mg PO DAILY 05/09/21 [History Last Taken Unknown] Allergy/AdvReac Type Severity Reaction Status Date / Time propranolol [From Inderal LA] Allergy Shortness Verified 07/20/20 13:54 of breath Sulfa (Sulfonamide Allergy Unknown Verified 07/20/20 13:54 Antibiotics) amoxicillin AdvReac Rash Verified 07/20/20 13:54 codeine AdvReac Other Verified 07/20/20 13:54 Penicillins [PCN] AdvReac Rash Verified 07/20/20 13:54 MORPHINE AdvReac Itching Uncoded 07/20/20 13:54 Social History Smoking Status: Never smoker ROS ROS ED Constitutional Constitutional ED: Denies chills or fever(s) ENT ENT ED: Denies rhinorrhea or sore throat Cardiovascular Cardiovascular: Denies chest pain or palpitations Respiratory/Chest Respiratory/Chest: Denies cough or dyspnea Gastrointestinal Gastrointestinal: Reports abdominal pain, nausea and vomiting; Denies constipation or diarrhea Genitourinary Genitourinary ED: Denies dysuria or hematuria Musculoskeletal Musculoskeletal: Denies arthralgias or myalgias Neurologic Neurologic: Denies headache(s) or weakness Psychiatric Psychiatric: Denies anxiety or depression EXAM Physical Exam Const Vital Signs: 05/08/21 21:56 05/08/21 22:26 05/09/21 01:38 Temperature 98.4 F Temperature Source Temporal Pulse Rate 86 77 Respiratory Rate 15 18 16 Blood Pressure 124/89 H Blood Pressure Mean 100 Pulse Ox 98 98 Oxygen Delivery Method Room Air Room Air Positive well nourished General Appearance ED: NAD HEENT Reports moist mucous membranes normocephalic and atraumatic Eyes PERRL and EOMs intact bilaterally Resp normal respiratory effort Cardio regular rate and regular rhythm GI GI Narrative: Tenderness to palpation in the midline of the lower abdomen. Neuro Sensorium / Orientation: alert and oriented to person Psych mental status grossly normal and thought process normal Skin Lesions: no lesions Rashes: no rashes MDM MDM MDM Narrative Medical decision making narrative: Patient presenting with abdominal pain. She states she really just want something for nausea. She states she has not had any fever and admits to pressure in the middle to the left side of her lower abdomen. Vital signs are stable and she is afebrile. Patient has a slight leukocytosis of 13.4. Renal function and electrolytes are normal. is negative. CT of the abdomen pelvis shows diverticulitis with 5 x 3.5 cm abscess. Patient counseled on findings. I spoke with Dr. Murphy. Who agreed to admit the patient. Likely this will need interventional radiology. I will start Cipro and Flagyl due to patient's penicillin allergy. Covid testing is pending on admission. Impression: 1. Diverticulitis with abscess Lab Data Attestation: I reviewed the patient's lab results. Labs: Laboratory Results - last 24 hr 05/08/21 05/08/21 05/08/21 22:39 22:39 22:39 WBC 13.4 H RBC 4.66 Hgb 13.0 Hct 39.1 MCV 83.9 MCH 27.9 MCHC 33.2 RDW Std Deviation 40.4 RDW Coeff of Carline 13.2 Plt Count 301 MPV 10.3 Immature Gran % (Auto) 1.700 H Neut % (Auto) 84.1 H Lymph % (Auto) 8.2 L [place] % (Auto) 5.4 Eos % (Auto) 0.4 Baso % (Auto) 0.2 Absolute Neuts (auto) 11.2 H Absolute Lymphs (auto) 1.09 Nucleated RBC % 0 Sodium 138 Potassium 3.7 Chloride 104 Carbon Dioxide 30.0 Anion Gap 4 L BUN 9 Creatinine 0.63 Estim Creat Clear Calc 100.45 Est GFR (MDRD) Af Amer 132 Est GFR (MDRD) Non-Af 109 BUN/Creatinine Ratio 14.2 Glucose 120 H Calcium 8.8 Serum , Qual NEGATIVE Urine Color Urine Clarity Urine pH Ur Specific [place] Urine Protein Urine Glucose (UA) Urine Ketones Urine Occult Blood Urine Nitrite Urine Bilirubin Urine Urobilinogen Ur Leukocyte Esterase Urine RBC Urine WBC Ur Squamous Epith Cells Amorphous Sediment Urine Bacteria Urine Mucus 05/08/21 23:59 WBC RBC Hgb Hct MCV MCH MCHC RDW Std Deviation RDW Coeff of Carline Plt Count MPV Immature Gran % (Auto) Neut % (Auto) Lymph % (Auto) [place] % (Auto) Eos % (Auto) Baso % (Auto) Absolute Neuts (auto) Absolute Lymphs (auto) Nucleated RBC % Sodium Potassium Chloride Carbon Dioxide Anion Gap BUN Creatinine Estim Creat Clear Calc Est GFR (MDRD) Af Amer Est GFR (MDRD) Non-Af BUN/Creatinine Ratio Glucose Calcium Serum , Qual Urine Color Yellow Urine Clarity Clear Urine pH 9.0 Ur Specific [place] 1.015 Urine Protein Negative Urine Glucose (UA) Normal Urine Ketones Negative Urine Occult Blood Negative Urine Nitrite Negative Urine Bilirubin Negative Urine Urobilinogen Normal Ur Leukocyte Esterase Negative Urine RBC 0 SEEN Urine WBC 0 SEEN Ur Squamous Epith Cells 0-5 SEEN Amorphous Sediment 2+ Urine Bacteria 0 SEEN Urine Mucus 0 SEEN Radiography Diagnostic Testing: Radiology Impression Abdomen/Pelvis CT 05/09/21 23:56 IMPRESSION: Sigmoid diverticulitis. There is fluid collection adjacent to the sigmoid colon measures approximately 5 x 3.5 cm most likely represent an abscess. There is small amount of free fluid in the pelvic cul-de-sac. Electronically Signed: Yasir Murrieta MD at 1:57 EDT Tel , Service support , Discharge Plan Triage Chief Complaint: Abd Pain ED Provider: Charles Bailey Dx/Rx/DC Orders Prescriptions: No Action verapamil 120 MG tablet extended release 60 mg PO DAILY RF: 0 sertraline 50 MG tablet 50 mg PO DAILY RF: 0 esomeprazole magnesium [Nexium] 40 mg Capsule,Delayed Release(Dr/Ec) 40 mg PO DAILY RF: 0 Primary Care Provider: Andi Clements
[2021-05-09] VITALS (12 sets, daily range): BP systolic 103–135; BP diastolic 62–89; PULSE 67–87; RESP 15–18; TEMP 36.6–37; O2SAT 97–100; BMI 29.5
[2021-05-09 00:06] LABS: Bacteria 0 SEEN /hpf (None Seen); Mucous, Urine 0 SEEN /hpf (<or=2+); Red Blood Cells-Urine 0 SEEN /hpf (0-5); White Blood Cells 0 SEEN /hpf (0-5)
[2021-05-09] MEDS: Ondansetron 4 MG/2 ML Vial IV ×2 (00:13→06:21)
[2021-05-09 00:15] LABS: Color, Urine Yellow (Yellow); Glucose, Dipstick Normal (Normal); Ketone-Dipstick Negative (Negative); Leukocyte Esterase-Dipstick Negative /ul (Negative); Nitrite-Dipstick Negative (Negative); Occult Blood-Urine Negative /ul (Negative); Protein-Dipstick Negative (Negative); Specific Gravity, Urine 1.015 (1.002-1.030); Urine Bilirubin Dipstick Negative (Negative); Urine Clarity Clear (Clear); Urine Urobilinogen Normal (Normal)
[2021-05-09 00:28] LABS: Amorphous Sediment 2+; Squamous Epithelial Cells - UA 0-5 SEEN /hpf (5-10)
[2021-05-09] MEDS: metroNIDAZOLE 500 MG/100 ML BAG 100 MG IV ×2 (02:44→14:06)
[2021-05-09] MEDS: HYDROmorphone 0.5 MG/0.5 ML SYRINGE IV (06:21)
[2021-05-09] MEDS: Lactated Ringers 1,000 ML 125 ML IV ×2 (06:22→17:07)
[2021-05-09] MEDS: Ciprofloxacin 400 MG/200 ML BAG 200 MG IV (06:22)
--- NOTE | 2021-05-09 07:53 | HP.PCM_ITS ---
[facility] - General General Date of Admission: 05/09/21 HPI Narrative JAVIER DOSS, is a 40 F who presents approximately 24-hour history of lower quadrant abdominal pain. She states that she had some periumbilical discomfort over the last week, but began with focused, more intense lower quadrant abdominal pain yesterday after doing some leg lifts. She initially believed this pain was related to the exercise, but when it persisted she decided to seek evaluation. Her emergency department evaluation was remarkable for laboratory showing a leukocytosis of 13,[address] abdomen pelvis demonstrated evidence of complicated diverticulitis with a pelvic abscess measuring 5 cm x 3 cm. Patient has no prior history of diverticulitis. She has no prior scope history. Patient does have history of multiple abdominal surgeries including a section, hysterectomy, appendectomy ([address] Wilder), and most recently an adrenalectomy by Dr. Bergeron at the [facility] in December 2020. [facility] Medical History (Updated 05/09/21 @ 07:[address] Alfonso Murphy MD) Anxiety Chest pain CPAP (continuous positive airway pressure) dependence Deafness in left ear Depression GERD (gastroesophageal reflux disease) Irregular heart beat Kidney stones Mitral valve prolapse Seizures Sleep apnea Home Medications verapamil 60 mg PO DAILY 10/27/18 [History Last Taken 05/08/21 17:00] sertraline 100 mg PO DAILY 01/24/19 [History Last Taken 05/08/21 17:00] esomeprazole magnesium [Nexium] 40 mg PO DAILY 05/09/21 [History Last Taken 05/07/21 05:00] Allergy/AdvReac Type Severity Reaction Status Date / Time propranolol [From Inderal LA] Allergy Shortness Verified 07/20/20 13:54 of breath Sulfa (Sulfonamide Allergy Unknown Verified 07/20/20 13:54 Antibiotics) amoxicillin AdvReac Rash Verified 07/20/20 13:54 codeine AdvReac Other Verified 07/20/20 13:54 Penicillins [PCN] AdvReac Rash Verified 07/20/20 13:54 MORPHINE AdvReac Itching Uncoded 07/20/20 13:54 Surgical History (Updated 05/09/21 @ 04:02 by Andi King) History of appendectomy S/P hysterectomy Social History Smoking Status: Never smoker Vital Signs Vital Signs Vital Signs: 05/08/21 21:56 05/08/21 22:26 05/09/21 01:38 Temperature 98.4 F Temperature Source Temporal Pulse Rate 86 77 Respiratory Rate 15 18 16 Respiratory Effort Respiratory Depth Respiratory Pattern Blood Pressure 124/89 H Blood Pressure Mean 100 Blood Pressure Source Blood Pressure Position Blood Pressure Location Pulse Ox 98 98 Oxygen Delivery Method Room Air Room Air 05/09/21 02:44 05/09/21 03:43 05/09/21 04:04 Temperature 98.4 F 98.5 F Temperature Source Temporal Oral Pulse Rate 77 87 Respiratory Rate 16 18 Respiratory Effort Normal Non-Labored Respiratory Depth Normal Respiratory Pattern Normal Blood Pressure 124/89 H 109/69 Blood Pressure Mean 100 82 Blood Pressure Source Monitor Blood Pressure Position Supine Blood Pressure Location Left Arm Pulse Ox 98 98 Oxygen Delivery Method Room Air Room Air Room Air Weight Weight: 172 lb 13.478 oz Body Mass Index (BMI) 29.5 Physical Exam Const alert, oriented x3 and no apparent distress Resp normal respiratory effort Cardio regular rate and regular rhythm Heart Sounds: murmur Results Lab / Micro Data Result Diagrams: 05/08/21 22:39 05/08/21 22:39 Labs: Laboratory Results - last 24 hr 05/08/21 22:39: WBC 13.4 H, RBC 4.66, Hgb 13.0, Hct 39.1, MCV 83.9, MCH 27.9, MCHC 33.2, RDW Std Deviation 40.4, RDW Coeff of Carline 13.2, Plt Count 301, MPV 10.3, Immature Gran % (Auto) 1.700 H, Neut % (Auto) 84.1 H, Lymph % (Auto) 8.2 L , [place] % (Auto) 5.4, Eos % (Auto) 0.4, Baso % (Auto) 0.2, Absolute Neuts (auto) 11.2 H, Absolute Lymphs (auto) 1.09, Nucleated RBC % 0 05/08/21 22:39: Sodium 138, Potassium 3.7, Chloride 104, Carbon Dioxide 30.0, Anion Gap 4 L, BUN 9, Creatinine 0.63, Estim Creat Clear Calc 100.45, Est GFR (MDRD) Af Amer 132, Est GFR (MDRD) Non-Af 109, BUN/Creatinine Ratio 14.2, Glucose 120 H, Calcium 8.8 05/08/21 22:39: Serum , Qual NEGATIVE 05/08/21 23:59: Urine Color Yellow, Urine Clarity Clear, Urine pH 9.0, Ur Specific [place] 1.015, Urine Protein Negative, Urine Glucose (UA) Normal, Urine Ketones Negative, Urine Occult Blood Negative, Urine Nitrite Negative, Urine Bilirubin Negative, Urine Urobilinogen Normal, Ur Leukocyte Esterase Negative, Urine RBC 0 SEEN, Urine WBC 0 SEEN, Ur Squamous Epith Cells 0-5 SEEN, Amorphous Sediment 2+, Urine Bacteria 0 SEEN, Urine Mucus 0 SEEN Micro: Microbiology 05/09/21 02:49 Nasal Secretion SARS-CoV-2 Antigen (Rapid) - Final Radiology Impression Abdomen/Pelvis CT 05/09/21 23:56 IMPRESSION: Sigmoid diverticulitis. There is fluid collection adjacent to the sigmoid colon measures approximately 5 x 3.5 cm most likely represent an abscess. There is small amount of free fluid in the pelvic cul-de-sac. Electronically Signed: Yasir Murrieta MD at 1:57 EDT Tel , Service support , Assessment & Plan Assessment/Plan (1) Diverticulitis of large intestine with complication: PLAN: This is a 40-year-old female with first presentation of complicated diverticulitis ([place] 2). Patient clinically stable but exam consistent with diagnosis. Plan for obtaining coags this morning. Then proceeding with percutaneous drain placement via CT guidance later today. Remainder the plan as follows: Neuro: As needed IV Dilaudid, as needed acetaminophen Pulm/CV: Telemetry for history of irregular heartbeat, continue home verapamil FEN/GI: N.p.o. for bowel rest, monitor daily labs for lytes Heme/ID: Cipro/Flagyl given penicillin allergy Endo: Not applicable Proph: We will begin subcu heparin Dispo: Continue inpatient stay Charges/Coding Visit Charges Inpatient E&M: 97242 Init Hosp L3
[2021-05-09 08:30] LABS: Absolute Lymphocyte Count 0.86 X10^3/uL (0.83-4.51); Absolute Neutrophil Count 8.1 X10^3/uL (2.0-7.7); Basophil# 0.02 X10^3/uL; Basophil% 0.2 % (0-1); Eosinophil# 0.05 X10^3/uL; Eosinophils% 0.5 % (0-5); Hematocrit 36.2 % (37-47); Hemoglobin 12.3 g/dL (12.0-15.0); Lymphocyte # 0.86 X10^3/ul (0.83-4.51); Lymphocyte % 8.9 % (19-41); Mean Corpuscular Hgb 28.7 pg (27.0-32.0); Mean Corpuscular Volume 84.6 fL (81-99); Mean Platelet Vol. 10.1 fl (6.2-12.0); Monocyte# 0.59 X10^3/uL; Monocyte% 6.1 % (0-10); NRBC Flagged by Analyzer 0 % (0-5); Neutrophil # 8.08 X10^3/uL (2.7-7.7); Neutrophil % 83.9 % (47-70); Platelet Count 255 K/mm3 (150-450); RBC Distribution Width CV 13.4 % (11.6-14.6); RBC Distribution Width SD 40.9 fl (35.1-43.9); Red Blood Count 4.28 M/mm3 (4.2-5.4); White Blood Count 9.6 K/mm3 (4.4-11.0)
[2021-05-09 08:52] LABS: Anion Gap 6 (5-15); BUN 7 mg/dL (7-18); BUN/Creat Ratio 12.1 RATIO (10-20); Calcium,Total 8.5 mg/dL (8.5-10.1); Chloride 106 mmol/L (98-107); Creatinine, Serum 0.58 mg/dL (0.55-1.02); EST Glomerular Filtration Rate 121 mL/min (>60); Est Glom Filt Rate - Afr Amer 147 mL/min (>60); Estimated Creatinine Clearance 109.11 ml/min; Glucose 123 mg/dL (74-106); Phosphorus 3.1 mg/dL (2.5-4.9); Potassium 3.4 mmol/L (3.5-5.1); Sodium Level 140 mmol/L (136-145)
[2021-05-09 09:07] LABS: International Normalized Ratio 1.2
[2021-05-09 09:08] LABS: Partial Thromboplast Time 37.5 Seconds (24.1-36.2)
--- NOTE | 2021-05-09 09:38 | NURSING ---
pt to procedure
--- NOTE | 2021-05-09 10:28 | US_ITS ---
STUDY: ULTRASOUND OF THE FEMALE PELVIS - COMPLETE REASON FOR EXAM: Female, 40 years old. MRI evaluation of the right ovary. Abnormal CT scan of the abdomen and pelvis. LMP: The patient is postmenopausal. TECHNIQUE: Transabdominal and Transvaginal TECHNICAL QUALITY: Adequate. COMPARISON: Comparison is made with prior study of 05/12/2017. FINDINGS: The patient is status post hysterectomy. The right ovary is visualized. The right ovary measures 4.8 cm x 4.7 cm x 4.4 cm. Within the right ovary, there is a complex solid and cystic mass measuring 2.7 cm x 3.4 cm x 2.9 cm. This corresponds to the CT abnormality. Differential diagnosis should include identifying neoplastic process versus possible ovarian infectious process. Clinical correlation is recommended. There is no visualized right adnexal mass or complex lesion. There is normal arterial and normal venous vascularity. The patient is status post left oophorectomy. There is minimal fluid in the cul-de-sac. US/Pelvic (Non ) IMPRESSION: The alignment is seen on the recent CT scan hemipelvis corresponds to a 2.7 cm x 3.4 cm x 2.9 cm complex solid and cystic mass in the right ovary. An inflammatory process of the right ovary should be ruled out. Small amount of free fluid in the cul-de-sac. Status post hysterectomy and left oophorectomy. Electronically Signed: Raman Pinzon MD at 12:50 EDT , Service support ,
--- NOTE | 2021-05-09 10:48 | US_ITS ---
STUDY: ULTRASOUND OF THE FEMALE PELVIS - COMPLETE REASON FOR EXAM: Female, 40 years old. MRI evaluation of the right ovary. Abnormal CT scan of the abdomen and pelvis. LMP: The patient is postmenopausal. TECHNIQUE: Transabdominal and Transvaginal TECHNICAL QUALITY: Adequate. COMPARISON: Comparison is made with prior study of 05/12/2017. FINDINGS: The patient is status post hysterectomy. The right ovary is visualized. The right ovary measures 4.8 cm x 4.7 cm x 4.4 cm. Within the right ovary, there is a complex solid and cystic mass measuring 2.7 cm x 3.4 cm x 2.9 cm. This corresponds to the CT abnormality. Differential diagnosis should include identifying neoplastic process versus possible ovarian infectious process. Clinical correlation is recommended. There is no visualized right adnexal mass or complex lesion. There is normal arterial and normal venous vascularity. The patient is status post left oophorectomy. There is minimal fluid in the cul-de-sac. US/Transvaginal Non- IMPRESSION: The alignment is seen on the recent CT scan hemipelvis corresponds to a 2.7 cm x 3.4 cm x 2.9 cm complex solid and cystic mass in the right ovary. An inflammatory process of the right ovary should be ruled out. Small amount of free fluid in the cul-de-sac. Status post hysterectomy and left oophorectomy. Electronically Signed: Raman Pinzon MD at 12:50 EDT , Service support ,
--- NOTE | 2021-05-09 11:20 | CASEMGMT ---
RN CM Face to Face with patient for initial transition planning/care coordination assessment. RN CM introduced self and role at [facility]. Patient lying in bed, alert and oriented, at bedside. Patient willing to participate in assessment and is able to answer all questions appropriately. Care providers, pharmacy, and demographics verified. Patient wishes to discharge home, denies need for home health at this time. Patient states she has no further needs or concerns at this time. CM to follow for discharge planning needs that may arise. PCP: Starr Specialists: Lolly, PUBLIC RECORDS OFFICER; [place] public health dentist [facility]erred [facility]acy: [facility] Insurance: MMO Prescription Benefit: yes Living Will/HPOA: none LNOK: Living Arrangements: Patient lives with in a split level home. Patient is independent and able to ambulate stairs. Transportation: self/ DME/HHC: Patient states she has cpap at home. Patient denies need for additional DME or HHC. Disposition Plan: Patient to discharge home with family support and follow-up plans in place. Layla GORDILLO, RN, CM
--- NOTE | 2021-05-09 14:11 | CT_ITS ---
STUDY: CT ABDOMEN AND PELVIS WITHOUT CONTRAST REASON FOR EXAM: Female, 40 years old. Help r/o active diverticulitis with UT GG contras RADIATION DOSAGE (If Supplied By Facility): CTDIvol = ( 10.68 ) mGy, DLP = ( 568.27 ) mGycm TECHNIQUE: Transaxial images were obtained from the dome of the diaphragm to the symphysis pubis following rectal contrast administration. And without intravenous contrast. Sagittal and coronal images were reconstructed. Individualized dose optimization techniques were used for this CT. COMPARISON: Comparison is made with prior study dated 05/09/2021 at 12:28 AM. FINDINGS: Contrast is seen within the rectum as well as the sigmoid colon and descending colon. Fecal material is seen within the colon. There is a persistent 4.9 cm x 5.3 cm hypodense collection in the right adnexal area. This was demonstrated to be a complex ovarian cyst as seen on ultrasound. This does not communicate with the sigmoid colon. CT/Abdomen/Pelvis without Cont IMPRESSION: The sigmoid colon is unremarkable. No radiographic ends of diverticulitis. No change in the right adnexal complex structure as seen on prior sonogram of the pelvis. Electronically Signed: Raman Pinzon MD at 15:12 EDT , Service support ,
--- NOTE | 2021-05-09 14:32 | NURSING ---
pt to ct scan
--- NOTE | 2021-05-09 15:50 | CHAPLAIN ---
Type of Pastoral Visit _x__ Initial Visit ___ Follow-up Visit ___ On-call Visit ___ General Patient Visit ___ Spiritual Assessment ___ Family Conference ___ Bereavement ___ Rapid Response ___ Code Blue ___ Other (describe below) Pastoral Care Referral From _x__ Patient ___ Family ___ Nurse ___ Physician ___ Inspector Rubber Stamp [employer] ___ Retail Coordinator ___ Other (describe below) Sacrament/Intervention _x__ Active listening ___ Anointing ___ Christian ___ Bereavement ___ Communion ___ [place] exploration ___ _x__ Life review _x__ Prayer ___ Reconciliation ___ Sacrament of Sick _x__ Supportive presence ___ Wedding ___ Other (describe below) Pastoral Comments
--- NOTE | 2021-05-09 16:08 | NURSING ---
called report to [facility]
--- NOTE | 2021-05-09 17:00 | PN.OBGYN_ITS ---
Subjective Subjective Patient sleeping in bed. States pain is improved, on no IV pain medications. Does feel some pain that is cramping that comes and goes. Feels pain in umbilicus and the right side of the abdomen. Feels very hungry Objective Data Objective Data Vital Signs: Vital Signs Temp Pulse Resp BP Pulse Ox 98.6 F 75 16 103/68 100 05/09/21 16:06 05/09/21 16:06 05/09/21 16:06 05/09/21 16:06 05/09/21 16:06 Oxygen Delivery Method Room Air Weight: 172 lb 13.478 oz Body Mass Index (BMI) 29.5 Intake & Output: Intake and Output for Last 24 Hours 05/07/21 05/08/21 05/09/21 23:59 23:59 23:59 Intake Total 766.25 / 766.25 Balance 766.25 / 766.25 Lab / Micro Data Result Diagrams: 05/09/21 07:50 05/09/21 07:50 Labs: Laboratory Results - last 24 hr 05/08/21 22:39: WBC 13.4 H, RBC 4.66, Hgb 13.0, Hct 39.1, MCV 83.9, MCH 27.9, MCHC 33.2, RDW Std Deviation 40.4, RDW Coeff of [place] 13.2, Plt Count 301, MPV 10.3, Immature Gran % (Auto) 1.700 H, Neut % (Auto) 84.1 H, Lymph % (Auto) 8.2 L , [place] % (Auto) 5.4, Eos % (Auto) 0.4, Baso % (Auto) 0.2, Absolute Neuts (auto) 11.2 H, Absolute Lymphs (auto) 1.09, Nucleated RBC % 0 05/08/21 22:39: Sodium 138, Potassium 3.7, Chloride 104, Carbon Dioxide 30.0, Anion Gap 4 L, BUN 9, Creatinine 0.63, Estim Creat Clear Calc 100.45, Est GFR ( MDRD) Af Amer 132, Est GFR (MDRD) Non-Af 109, BUN/Creatinine Ratio 14.2, Glucose 120 H, Calcium 8.8 05/08/21 22:39: Serum , Qual NEGATIVE 05/08/21 23:59: Urine Color Yellow, Urine Clarity Clear, Urine pH 9.0, Ur Specific [place] 1.015, Urine Protein Negative, Urine Glucose (UA) Normal, Urine Ketones Negative, Urine Occult Blood Negative, Urine Nitrite Negative, Urine Bilirubin Negative, Urine Urobilinogen Normal, Ur Leukocyte Esterase Negative, Urine RBC 0 SEEN, Urine WBC 0 SEEN, Ur Squamous Epith Cells 0-5 SEEN, Amorphous Sediment 2+, Urine Bacteria 0 SEEN, Urine Mucus 0 SEEN 05/09/21 07:50: WBC 9.6, RBC 4.28, Hgb 12.3, Hct 36.2 L, MCV 84.6, MCH 28.7, MCHC 34.0, RDW Std Deviation 40.9, RDW Coeff of [place] 13.4, Plt Count 255, MPV 10.1, Immature Gran % (Auto) 0.400, Neut % (Auto) 83.9 H, Lymph % (Auto) 8.9 L, [place] % (Auto) 6.1, Eos % (Auto) 0.5, Baso % (Auto) 0.2, Absolute Neuts (auto) 8.1 H, Absolute Lymphs (auto) 0.86, Nucleated RBC % 0 05/09/21 07:50: Sodium 140, Potassium 3.4 L, Chloride 106, Carbon Dioxide 28.0, Anion Gap 6, BUN 7, Creatinine 0.58, Estim Creat Clear Calc 109.11, Est GFR (MDRD) Af Amer 147, Est GFR (MDRD) Non-Af 121, BUN/Creatinine Ratio 12.1, Glucose 123 H, Calcium 8.5, Phosphorus 3.1, Magnesium 2.0 05/09/21 08:30: PT 15.0 H, INR 1.2, APTT 37.5 H Micro: Microbiology 05/09/21 02:49 Nasal Secretion SARS-CoV-2 Antigen (Rapid) - Final Radiography Diagnostic Testing: Radiology Impression Pelvis Ultrasound 05/09/21 10:28 IMPRESSION: The alignment is seen on the recent CT scan hemipelvis corresponds to a 2.7 cm x 3.4 cm x 2.9 cm complex solid and cystic mass in the right ovary. An inflammatory process of the right ovary should be ruled out. Small amount of free fluid in the cul-de-sac. Status post hysterectomy and left oophorectomy. Electronically Signed: Raman Pinzon MD at 12:50 EDT , Service support , Transvaginal US 05/09/21 10:48 IMPRESSION: The alignment is seen on the recent CT scan hemipelvis corresponds to a 2.7 cm x 3.4 cm x 2.9 cm complex solid and cystic mass in the right ovary. An inflammatory process of the right ovary should be ruled out. Small amount of free fluid in the cul-de-sac. Status post hysterectomy and left oophorectomy. Electronically Signed: Raman Pinzon MD at 12:50 EDT , Service support , Abdomen/Pelvis CT 05/09/21 14:11 IMPRESSION: The sigmoid colon is unremarkable. No radiographic ends of diverticulitis. No change in the right adnexal complex structure as seen on prior sonogram of the pelvis. Electronically Signed: Raman Pinzon MD at 15:12 EDT , Service support , Abdomen/Pelvis CT 05/09/21 23:56 IMPRESSION: Sigmoid diverticulitis. There is fluid collection adjacent to the sigmoid colon measures approximately 5 x 3.5 cm most likely represent an abscess. There is small amount of free fluid in the pelvic cul-de-sac. Electronically Signed: Yasir Murrieta MD at 1:57 EDT Tel , Service support , Physical Exam Const alert, oriented x3, no apparent distress, average body habitus and healthy appearing Exam Limitations: no limitations HEENT normocephalic and moist oral mucous membranes Head and Scalp: atraumatic Face and Sinus: normal facial exam Eyes PERRL Neck full ROM and no lymphadenopathy Lymph Lymphatic: no lymphadenopathy noted Resp normal respiratory effort, no retractions and no use of accessory muscles GI GI Narrative: Abdomen soft, mildly tender in bilateral lower quadrants to deep palpation, mildly distended no fluid exchange. No palpable masses Extremity normal to inspection, full ROM, no clubbing, cyanosis or edema, no calf tenderness and no pedal edema Skin no rashes or lesions noted Psych mental status grossly normal, affect normal, speech normal and activity/motor behavior normal Assessment & Plan (1) Ovarian cyst: PLAN: Consultation for abdominal pain initially diagnosed with diverticulitis found to have ovarian cyst. Questions of ruptured ovarian cyst. Patient seen and examined, typically sees Dr. Amaya from [facility] but states she just wants to be seen and evaluated. Agree to evaluation. Patient with pain for several days that kept coming and going crampy pain. Had some skinny nges in diet, including increased prunes. Thought this was the cause of her pain. No fevers or chills. Pain increased back and forth and then increased to the point of excruciating pain. Arrived to [facility] ER for evaluation. Initially had concerns on CT for diverticulitis and treated with antibiotics per general surgery. Transvaginal ultrasound was done, patient status post hysterectomy and left oophorectomy. Patient still has right ovary. Previously seen in 2019 with 3 cm right ovarian cyst. Now today with 3x5cm right ovarian cyst with some mild free fluid in the pelvis. Patient symptoms have improved since arrival. Abdomen with mild distention. Reviewed case with general surgery and discussed possibility of ovarian cyst rupture, repeat imaging was done ruling out bowel complications. Patient overall stable, based on this we'll start regular diet per general surgery and discharged to be seen by [facility] for outpatient follow-up. Appreciate this consultation, please call if you have any questions
[2021-05-09] MEDS: Verapamil 120 MG Tablet 60 MG PO (17:08)
[2021-05-09] MEDS: Sertraline 100 MG Tablet PO (17:53)
--- NOTE | 2021-05-09 19:46 | PCM.DC ---
Discharge Instructions Diet Discharge Diet: No restrictions Activity Discharge Activity: Return to Normal Activity Dressing / Incision Call your doctor if your incision/area has: Increased Pain/ Swelling Call your doctor if you observe: Fever of 101 or Higher, Dizziness and Uncontrolled pain Follow Up Care Please Follow Up With: Clinic Tactical Debriefer Officer When: Within 2 weeks of hospitalization Test Results: Test results from this visit will be discussed in further detail at your follow-up appointment, if applicable. Discharge Plan Admission Admit Date/Time: 05/09/21 02:44 Primary Reason for Your Visit: Ovarian cyst rupture Attending Provider: Alfonso Murphy Primary Care Provider: Andi Clements Consulting Providers: Aditya Whipple Instructions Patient Instructions: Ovarian Cysts Additional Instructions / Restrictions: Please follow up with regular spinner iron within 2 weeks of hospital discharge Discharge Orders/Prescriptions Prescriptions: New tramadol 50 mg tablet 50 mg PO Q6H PRN (Reason: pain) Qty: 14 RF: 0 Continued verapamil 120 MG tablet extended release 60 mg PO DAILY RF: 0 sertraline 50 MG tablet 100 mg PO DAILY RF: 0 esomeprazole magnesium [Nexium] 40 mg Capsule,Delayed Release(Dr/Ec) 40 mg PO DAILY RF: 0 Referrals / Follow Up: Andi Clements MD [Primary Care Provider] -
--- NOTE | 2021-05-09 19:56 | DS.PCM_ITS ---
Providers Date of Admission: 05/09/21 Primary Care Physician: Dr. Andi Clements MD Reason For Visit: DIVERTICULITIS WITH ABSCESS Diagnosis Discharge Diagnosis (1) Ovarian cyst: Status: Acute Code(s): N83.209 - Unspecified ovarian cyst, unspecified side Medications at Discharge Home Medications verapamil 60 mg PO DAILY 10/27/18 sertraline 100 mg PO DAILY 01/24/19 esomeprazole magnesium [Nexium] 40 mg PO DAILY 05/09/21 tramadol 50 mg PO Q6H PRN #14 tab 05/09/21 Hospital Course Operations None Procedures None Summary of Care Provided Hospital Course: Patient was initially admitted in the early hours of 05/09/2021 after presenting complete the prior evening with complaints of acute onset lower quadrant abdominal pain. Both CT imaging read and laboratory values sees leukocytosis with left shift) were consistent with diagnosis of complicated diverticulitis. Further, patient had suprapubic tenderness with palpation. Therefore she was admitted to general surgery and CT drainage of an abscess was ordered, however, before the drainage procedure occurred, radiology performed a transvaginal ultrasound. This was done out of concern that the patient's fluid collection and rim-enhancing abscess actually represented a right adnexal cyst and physiologic cul-de-sac fluid. Indeed, the sonographic findings supported this alternative diagnosis. NURSING SERVICE ADMINISTRATOR was then consulted to evaluate the patient. Their initial clinical impression was that the patient's exam was not fully consistent with a simple ovarian cyst rupture and therefore we resolved to perform a second CT focused on the rectosigmoid colon. With the SD contrast, radiology was clearly able to demonstrate there was no abnormality to this portion of the large bowel and the right adnexal mass was redemonstrated. With these findings, the patient was advanced to a regular diet which she tolerated well. It should be noted that she did not require any additional pain medication throughout her hospital stay following initial administration of IV Dilaudid early in the morning of her inpatient stay. Given these positive diagnostic and clinical results, patient was offered discharge to home with recommendations for post?hospital follow-up with her regular caustic strength inspector to update them on these imaging findings. Patient gladly accepted and was granted discharge evening of 05/09/2021. A prescription for p.o. pain medications was transmitted to the patient's preferred pharmacy. I have recommended that the patient consider screening colonoscopy at 43 given some family history for colon problems, but she otherwise appears to be at of the average risk cohort. Weight / BMI Weight Weight: 172 lb 13.478 oz Body Mass Index (BMI) 29.5 ABG / Lab / Microbiology Data Result Diagrams: 05/09/21 07:50 05/09/21 07:50 Laboratory: Laboratory Results - last 24 hr 05/08/21 22:39: WBC 13.4 H, RBC 4.66, Hgb 13.0, Hct 39.1, MCV 83.9, MCH 27.9, MCHC 33.2, RDW Std Deviation 40.4, RDW Coeff of [place] 13.2, Plt Count 301, MPV 10.3, Immature Gran % (Auto) 1.700 H, Neut % (Auto) 84.1 H, Lymph % (Auto) 8.2 L , [place] % (Auto) 5.4, Eos % (Auto) 0.4, Baso % (Auto) 0.2, Absolute Neuts (auto) 11.2 H, Absolute Lymphs (auto) 1.09, Nucleated RBC % 0 05/08/21 22:39: Sodium 138, Potassium 3.7, Chloride 104, Carbon Dioxide 30.0, Anion Gap 4 L, BUN 9, Creatinine 0.63, Estim Creat Clear Calc 100.45, Est GFR (MDRD) Af Amer 132, Est GFR (MDRD) Non-Af 109, BUN/Creatinine Ratio 14.2, Glucose 120 H, Calcium 8.8 05/08/21 22:39: Serum , Qual NEGATIVE 05/08/21 23:59: Urine Color Yellow, Urine Clarity Clear, Urine pH 9.0, Ur Specific [place] 1.015, Urine Protein Negative, Urine Glucose (UA) Normal, Urine Ketones Negative, Urine Occult Blood Negative, Urine Nitrite Negative, Urine Bilirubin Negative, Urine Urobilinogen Normal, Ur Leukocyte Esterase Negative, Urine RBC 0 SEEN, Urine WBC 0 SEEN, Ur Squamous Epith Cells 0-5 SEEN, Amorphous Sediment 2+, Urine Bacteria 0 SEEN, Urine Mucus 0 SEEN 05/09/21 07:50: WBC 9.6, RBC 4.28, Hgb 12.3, Hct 36.2 L, MCV 84.6, MCH 28.7, MCHC 34.0, RDW Std Deviation 40.9, RDW Coeff of [place] 13.4, Plt Count 255, MPV 10.1, Immature Gran % (Auto) 0.400, Neut % (Auto) 83.9 H, Lymph % (Auto) 8.9 L, [place] % (Auto) 6.1, Eos % (Auto) 0.5, Baso % (Auto) 0.2, Absolute Neuts (auto) 8.1 H, Absolute Lymphs (auto) 0.86, Nucleated RBC % 0 05/09/21 07:50: Sodium 140, Potassium 3.4 L, Chloride 106, Carbon Dioxide 28.0, Anion Gap 6, BUN 7, Creatinine 0.58, Estim Creat Clear Calc 109.11, Est GFR (MDRD) Af Amer 147, Est GFR (MDRD) Non-Af 121, BUN/Creatinine Ratio 12.1, Glucose 123 H, Calcium 8.5, Phosphorus 3.1, Magnesium 2.0 05/09/21 08:30: PT 15.0 H, INR 1.2, APTT 37.5 H Microbiology: Microbiology 05/09/21 02:49 Nasal Secretion SARS-CoV-2 Antigen (Rapid) - Final Radiography Diagnostic Testing: Radiology Impression Pelvis Ultrasound 05/09/21 10:28 IMPRESSION: The alignment is seen on the recent CT scan hemipelvis corresponds to a 2.7 cm x 3.4 cm x 2.9 cm complex solid and cystic mass in the right ovary. An inflammatory process of the right ovary should be ruled out. Small amount of free fluid in the cul-de-sac. Status post hysterectomy and left oophorectomy. Electronically Signed: Raman Pinzon MD at 12:50 EDT , Service support , Transvaginal US 05/09/21 10:48 IMPRESSION: The alignment is seen on the recent CT scan hemipelvis corresponds to a 2.7 cm x 3.4 cm x 2.9 cm complex solid and cystic mass in the right ovary. An inflammatory process of the right ovary should be ruled out. Small amount of free fluid in the cul-de-sac. Status post hysterectomy and left oophorectomy. Electronically Signed: Raman Pinzon MD at 12:50 EDT , Service support , Abdomen/Pelvis CT 05/09/21 14:11 IMPRESSION: The sigmoid colon is unremarkable. No radiographic ends of diverticulitis. No change in the right adnexal complex structure as seen on prior sonogram of the pelvis. Electronically Signed: Raman Pinzon MD at 15:12 EDT , Service support , Abdomen/Pelvis CT 05/09/21 23:56 IMPRESSION: Sigmoid diverticulitis. There is fluid collection adjacent to the sigmoid colon measures approximately 5 x 3.5 cm most likely represent an abscess. There is small amount of free fluid in the pelvic cul-de-sac. Electronically Signed: Yasir Murrieta MD at 1:57 EDT Tel , Service support , D/C Instructions Discharge Diet: No restrictions Call your doctor if your incision/area has: Increased Pain/ Swelling Call your doctor if you observe: Fever of 101 or Higher, Dizziness and Uncontrolled pain Please Follow Up With: Clev. [employer] Supervisor When: Within 2 weeks of hospitalization Meaningful Use Info Meaningful Use Diagnoses (Choose all that apply): None applicable Discharge Plan Admission Admit Date/Time: 05/09/21 02:44 Primary Reason for Your Visit: Ovarian cyst rupture Attending Provider: Alfonso Murphy Primary Care Provider: Andi Clements Consulting Providers: Aditya Whipple Instructions Patient Instructions: Ovarian Cysts Additional Instructions / Restrictions: Please follow up with regular caustic strength inspector within 2 weeks of hospital discharge Discharge Orders/Prescriptions Prescriptions: New tramadol 50 mg tablet 50 mg PO Q6H PRN (Reason: pain) Qty: 14 RF: 0 Continued verapamil 120 MG tablet extended release 60 mg PO DAILY RF: 0 sertraline 50 MG tablet 100 mg PO DAILY RF: 0 esomeprazole magnesium [Nexium] 40 mg Capsule,Delayed Release(Dr/Ec) 40 mg PO DAILY RF: 0 Referrals / Follow Up: Andi Clements MD [Primary Care Provider] -
--- NOTE | 2021-05-09 23:56 | CT_ITS ---
STUDY: CT ABDOMEN AND PELVIS WITH CONTRAST REASON FOR EXAM: Female, 40 years old. abdominal pain RADIATION DOSAGE (If Supplied By Facility): CTDIvol = ( 16.01 ) mGy, DLP = ( 1208.29 ) mGycm TECHNIQUE: Transaxial images were obtained from the dome of the diaphragm to the symphysis pubis without oral contrast. IV 100mL Isovue-[id number] was administered. Sagittal and coronal images were reconstructed. Individualized dose optimization techniques were used for this CT. COMPARISON: None. FINDINGS: The visualized lung bases are unremarkable. The visualized portions of the heart are within normal limits. Normal liver. Normal gallbladder and extrahepatic biliary system. Normal spleen. Normal pancreas. Normal bilateral adrenal glands. Bilateral ovarian cysts are the largest measures 2.5 cm. Normal visualized stomach. Normal small intestine. There is diverticulosis, with thickening of the sigmoid colon wall, and pericolonic inflammation changes consistent with acute diverticulitis. The appendix is visualized and appears normal. Normal abdominal aorta. Normal inferior vena cava. Normal retroperitoneum. Normal urinary bladder. There is fluid collection adjacent to the sigmoid colon measures approximately 5 x 3.5 cm most likely represent an abscess. There is small amount of free fluid in the pelvic cul-de-sac. Normal abdominal wall. Normal osseous structures. CT/Abdomen/Pelvis W IV Cont ONLY IMPRESSION: Sigmoid diverticulitis. There is fluid collection adjacent to the sigmoid colon measures approximately 5 x 3.5 cm most likely represent an abscess. There is small amount of free fluid in the pelvic cul-de-sac. Electronically Signed: Yasir Murrieta MD at 1:57 EDT Tel , Service support ,
== END 2021-05-09 21:30 | disposition home or self-care (01) ==
LOC: ED 23:48 → MS2 05-09 02:57
PROVIDERS: Admitting Provider Surgery; Emergency Provider Student in an Organized Health Care Education/Training Program; PCP Family Medicine; Visit Provider Surgery
DX: N83.201 Unspecified ovarian cyst, right side (principal); K21.9 Gastro-esophageal reflux disease without esophagitis; G47.30 Sleep apnea, unspecified; H91.92 Unspecified hearing loss, left ear; F32.9 Major depressive disorder, single episode, unspecified; F41.9 Anxiety disorder, unspecified; Z79.899 Other long term (current) drug therapy; K57.32 Diverticulitis of large intestine without perforation or abscess without bleeding; Z78.0 Asymptomatic menopausal state; R94.8 Abnormal results of function studies of other organs and systems; Z90.721 Acquired absence of ovaries, unilateral
CPT/HCPCS: 36415; 74176; 74177; 76830; 76856; 80048; 81001; 83735; 84100; 84703; 85025; 85610; 85730; 87426; 93976; 96361; 96365; 96366; 96367; 96375; 96376; 99218; 99283; J7050; J7120; Q9967; A4216; G0378; J0744; J2405